=== PATIENT | female | born 1950 | race Two or more races ===

== ENCOUNTER 2019-04-25 12:51 | Outpatient (CLI) | payer MEDICARE ==
[2019-04-25] MEDS ORDERED: ZANTAC150 MG ORAL (16:50)
[2019-04-25] MEDS ORDERED: ASPIRIN EC81 MG ORAL (16:50)
--- NOTE | 2019-04-25 20:30 | Consultation ---
DATE OF CONSULTATION: 04/25/2019 GASTROENTEROLOGY CONSULTATION: CONSULTING PHYSICIAN: Francis Mathur M.D. CHIEF COMPLAINT: Screening colonoscopy evaluation, GERD. HISTORY OF PRESENT ILLNESS: The patient is a very pleasant 69-year-old female with past medical history of GERD, history of breast cancer, hypertension, hypercholesteremia who was referred to us for evaluation of screening colonoscopy. Complained of constipation, GERD, bloating. PAST MEDICAL HISTORY: 1. GERD. 2. Breast CA. 3. Hypertension. 4. Hypercholesteremia. PAST SURGICAL HISTORY: 1. Lumpectomy. 2. Varicose vein surgery. MEDICATIONS: Zantac and aspirin. FAMILY HISTORY: Father had leukemia. SOCIAL HISTORY: . Denies any tobacco, alcohol, or drug abuse. ALLERGIES: No known drug allergy. REVIEW OF SYSTEMS: A 10-point review of systems was performed and pertinent positives in HPI. PHYSICAL EXAMINATION: VITAL SIGNS: Stable. HEENT: Normocephalic and atraumatic. Sclerae anicteric. NECK: Supple. No evidence of lymphadenopathy. CARDIOVASCULAR: Regular rate and rhythm. Plus S1 and S2. No obvious murmur. LUNGS: Clear to auscultation bilaterally. ABDOMEN: Positive bowel sounds. Soft and nontender. No rebound. No guarding. No peritoneal sign. EXTREMITIES: No cyanosis, no clubbing, no edema ASSESSMENT: The patient is a 69-year-old female 1. Needs a screening colonoscopy. 2. Has chronic GERD. 3. Has history of breast cancer. PLAN: Endoscopy and colonoscopy. Endoscopy for evaluation of chronic GERD and colonoscopy for screening. The patient was given instruction for colonoscopy, the prep. The risks and benefits of procedure were explained to her. She understood. She is scheduled for next week. Francis Mathur M.D. DR: EVONNE JOB#: [id number] CC:
== END 2019-04-25 14:51 | disposition home or self-care (01) ==
LOC: PAN 12:51
DX: K21.9 Gastro-esophageal reflux disease without esophagitis (principal); Z85.3 Personal history of malignant neoplasm of breast; I10 Essential (primary) hypertension; E78.00 Pure hypercholesterolemia, unspecified; Z79.82 Long term (current) use of aspirin; Z79.899 Other long term (current) drug therapy; K59.00 Constipation, unspecified; Z80.6 Family history of leukemia
CPT/HCPCS: 99202

== ENCOUNTER 2019-05-01 06:45 | Day surgery (SDC) | payer MEDICARE, BC ==
[~2019-05-01] VITALS: Ht 157.5 cm; Wt 79.4 kg
[2019-05-01] VITALS (7 sets, daily range): BP systolic 110–133; BP diastolic 65–85
[~2019-05-01 06:45] MED LIST: ASPIRIN EC81 MG ORAL; ZANTAC150 MG ORAL
[2019-05-01] MEDS ORDERED: DiphenhydrAMINE 50mg/ml Inj IVP PRN (07:15)
[2019-05-01] MEDS ORDERED: Atropine Inj 1mg/10ml Syr IV PRN (07:15)
[2019-05-01] MEDS ORDERED: Midazolam 2mg/2ml Inj IVP PRN (07:15)
[2019-05-01] MEDS ORDERED: fentaNYL 100 mcg/2 mL IV PRN (07:15)
--- NOTE | 2019-05-01 07:15 | Anethesia Preoperative Eval ---
Anesthesia Pre-op PMH/ROS General Date of Evaluation: May 01, 2019 Time of Evaluation: 07:12 Anesthesiologist: matthias ASA Score: ASA 3 Mallampati Score Class I : Soft palate, uvula, fauces, pillars visible Class II: Soft palate, uvula, fauces visible Class III: Soft palate, base of uvula visible Class IV: Only hard plate visible Mallampati Classification: Class II Surgeon: emerson Diagnosis: abdominal pain, gerd Surgical Procedure: egd/colonoscopy Anesthesia History: none Family History: no anesthesia problems Allergies: Coded Allergies: No Known Allergies (Unverified , 04/25/19) Medications: see eMAR Patient NPO?: Yes Past Medical History Cardiovascular: Reports: HTN, other - hypercholesterolemia Hematology/Immune: Reports: other - breast cancer Anesthesia Pre-op Phys. Exam Physician Exam Last Vital Signs Date Time Temp Pulse Resp B/P (MAP) Pulse Ox O2 Delivery O2 Flow Rate FiO2 05/01/19 07:29 Room Air 05/01/19 07:15 97.7 78 18 126/67 99 Constitutional: NAD Neurologic: CN 2-12 intact Cardiovascular: RRR Respiratory: CTA Gastrointestinal: S/NT/ND Airway Exam Mallampati Score: Class II MO: limited Neck: flexible TMD: 2fb ROM: limited Anesthesia Pre-op A/P Studies Pre-op Studies: EKG - nsr, inferior infarct age undetermined Risk Assessment & Plan Assessment: asa3 Plan: mac Status Change Before Surgery: No Pre-Antibiotics Drug: Aimee Guillory MD May 01, 2019 07:15
--- NOTE | 2019-05-01 08:20 | Pre-Procedure Note/Attestation ---
Pre-Procedure Note/Attestation Complete Prior to Procedure Planned Procedure: not applicable Procedure Narrative: esophagogastroduodenoscopy and colonoscopy Indications for Procedure Pre-Operative Diagnosis: GERD, screening colon Attestation I attest that I discussed the nature of the procedure; its benefits; risks and complications; and alternatives (and the risks and benefits of such alternatives ), prior to the procedure, with the patient (or the patient's legal insurance healthcare representative). I attest that, if there was a reasonable possibility of needing a blood transfusion, the patient (or the patient's legal insurance healthcare representative) was given the [facility] standardized written summary, pursuant to the Joe [place] Blood Safety Act ([place] Health and Safety Code # 1645, as amended). I attest that I re-evaluated the patient just prior to the surgery and that there has been no change in the patient's H&P, except as documented below: Francis Mathur MD May 01, 2019 08:20
--- NOTE | 2019-05-01 08:21 | Short Stay Surgery H&P ---
History of Present Illness History of Present Illness Chief Complaint see recent office note HPI Arlen Chaudhari is a 69 year old female who was admitted on for Abdominal Pain, Gerd Patient History Allergies: Coded Allergies: No Known Allergies (Unverified , 04/25/19) Medication History Scheduled Aspirin Ec* (Aspirin Ec*), 81 MG ORAL DAILY, (Reported) Ranitidine Hcl* (Zantac*), 150 MG ORAL DAILY, (Reported) Physical Exam Vital Signs Last Vital Signs Date Time Temp Pulse Resp B/P (MAP) Pulse Ox O2 Delivery O2 Flow Rate FiO2 05/01/19 07:29 Room Air 05/01/19 07:15 97.7 78 18 126/67 99 Plan Attestation Are the patient's medical conditions optimized for surgery? Francis Mathur MD May 01, 2019 08:21
[2019-05-01] MEDS ORDERED: Atropine Sulfate 0.4mg/ml inj ONE (08:30)
[2019-05-01] MEDS ORDERED: Lidocaine 1% MPF 10mg/ml 5ml ONE (08:30)
[2019-05-01] MEDS ORDERED: Propofol 200mg/20ml IV ONE (08:30)
--- NOTE | 2019-05-01 09:10 | Endoscopy Procedure Note ---
Endoscopy Procedure Note General Indication for Procedure: screening colon, GERD Procedures Performed: EGD, colonoscopy Operative Findings/Diagnosis: gastritis, diverticulosis Specimen: yes Pt Tolerated Procedure Well: Yes Estimated Blood Loss: none Anesthesia Anesthesiologist: matthias Anesthesia: MAC Inserted Devices Implant(s) used?: No Quality Quality of Bowel Preparation: Good Did scope reach the cecum?: Yes Was there any complications?: No GI Core Measures 50 yrs or older w/o bx or poly: No 10yrs. F/U recommended: Yes If not recommended, why?: Above average risk 18 years or older w/prev. colo: No Francis Mathur MD May 01, 2019 09:10
--- NOTE | 2019-05-01 09:33 | Immediate Post-Op Evaluation ---
Immediate Post-Op Evalulation Immediate Post-Op Evalulation Procedure: egd/colonscopy/bx Date of Evaluation: May 01, 2019 Time of Evaluation: 09:33 IV Fluids: 650ml 0.9ns Blood Products: none Estimated Blood Loss: negligible Blood Pressure Systolic: 115 Blood Pressure Diastolic: 85 Pulse Rate: 74 Respiratory Rate: 18 O2 Sat by Pulse Oximetry: 99 Temperature (Fahrenheit): 97.1 Pain Score (1-10): 0 Nausea: No Vomiting: No Complications none Patient Status: awake, reacts, patent Hydration Status: adequate Drug: Aimee Guillory MD May 01, 2019 09:33
--- NOTE | 2019-05-01 09:35 | 48 Hour Post Anesthesia Eval ---
Post Anesthesia Evaluation Procedure: egd/colonscopy/bx Date of Evaluation: May 01, 2019 Time of Evaluation: 09:35 Blood Pressure Systolic: 115 0: 85 Pulse Rate: 75 Respiratory Rate: 18 Temperature (Fahrenheit): 97.1 O2 Sat by Pulse Oximetry: 99 Airway: patent Nausea: No Vomiting: No Pain Intensity: 0 Hydration Status: adequate Cardiopulmonary Status: stable Mental Status/LOC: patient returned to baseline Post-Anesthesia Complications: none Follow-up care needed: N/A Aimee Varela MD May 01, 2019 09:35
--- NOTE | 2019-05-01 18:15 | Procedure Note ---
DATE OF PROCEDURE: 05/01/2019 SURGEON: Francis Mathur M.D. PROCEDURE: Upper endoscopy with biopsy and colonoscopy with biopsy. ANESTHESIA: Per Dr. Luu. INSTRUMENT: Olympus adult flexible upper endoscope and colonoscope. INDICATIONS: Chronic GERD, screening colonoscopy evaluation. REASON FOR PROCEDURE: The procedure, risks, benefits, and possible consequences, including hemorrhage, aspiration, perforation and infection, and alternative treatments, were explained to the patient/legal guardian by Dr. Francis Mathur and the patient/legal guardian understood and accepted these risks. PROCEDURE IN DETAIL: After informed consent was obtained and the patient was adequately sedated, Olympus upper endoscope was advanced from mouth into the second portion of the duodenum and retroflexion was performed in the stomach. The patient has diffuse gastritis. Random biopsy from antrum and body was obtained to rule out H. pylori infection. The rest of the upper endoscopic examination grossly looked within normal limits. At this time, the patient was turned over for colonoscopy. First, rectal exam was performed, which was normal. Then, the scope was advanced from the rectum into the cecum documented by appendiceal orifice, ileocecal valve, and right upper quadrant palpation. Quality of prep was good. The patient had evidence of significant diverticulosis, mostly in the left colon. There was an area in the distal sigmoid, which was bleeding, inflamed. Next, the diverticular area . This area was also biopsied. The retroflexion of rectum showed evidence of few nonbleeding small internal hemorrhoids. SUMMARY OF FINDINGS: 1. Gastritis, status post biopsy. 2. Diverticulosis and questionable . 3. Internal hemorrhoids. RECOMMENDATIONS: Follow up pathology and treat accordingly. Francis Mathur M.D. DR: GIUSEPPE JOB#: [id number] CC:
--- NOTE | 2019-05-05 13:59 | Cardiology Report ---
APPROVED REPORT EKG Measurement Heart [id number] Normal sinus rhythm Inferior infarct, age undetermined Abnormal ECG
== END 2019-05-01 10:05 | disposition home or self-care (01) ==
LOC: GAS 06:45
DX: Z12.11 Encounter for screening for malignant neoplasm of colon (principal); K21.9 Gastro-esophageal reflux disease without esophagitis; K52.9 Noninfective gastroenteritis and colitis, unspecified; K29.50 Unspecified chronic gastritis without bleeding; K57.90 Diverticulosis of intestine, part unspecified, without perforation or abscess without bleeding; K64.8 Other hemorrhoids; Z79.82 Long term (current) use of aspirin; Z79.899 Other long term (current) drug therapy; E78.00 Pure hypercholesterolemia, unspecified; Z85.3 Personal history of malignant neoplasm of breast
CPT/HCPCS: 43239; 45380; 93005; J0461; J2704; 94003; 94150

== ENCOUNTER 2019-05-15 13:29 | Outpatient (CLI) | payer MEDICARE ==
[2019-05-15 14:00] VITALS: BP 114/70
--- NOTE | 2019-05-15 14:55 | General Progress Note ---
Assessment/Plan Problem List: (1) Diverticulosis ICD Codes: K57.90 - Diverticulosis of intestine, part unspecified, without perforation or abscess without bleeding SNOMED: 657447855 (2) Gastritis ICD Codes: K29.70 - Gastritis, unspecified, without bleeding SNOMED: 0217714 (3) Hemorrhoids ICD Codes: K64.9 - Unspecified hemorrhoids SNOMED: 37047063 Assessment/Plan: repeat colonoscopy in 5 years Subjective ROS Limited/Unobtainable: Yes Allergies: Coded Allergies: No Known Allergies (Unverified , 04/25/19) Objective General Appearance: alert EENT: normal ENT inspection Neck: supple Cardiovascular: normal rate Respiratory/Chest: lungs clear Abdomen: normal bowel sounds, non tender, soft Extremities: non-tender Francis Mathur MD May 15, 2019 14:55
== END 2019-05-15 15:29 | disposition home or self-care (01) ==
LOC: PAN 13:29
DX: K57.90 Diverticulosis of intestine, part unspecified, without perforation or abscess without bleeding (principal); K29.70 Gastritis, unspecified, without bleeding; K64.9 Unspecified hemorrhoids
CPT/HCPCS: 99202